=== PATIENT | female | born 1955 | race African-American/Black ===

== ENCOUNTER 2017-05-20 10:21 | Emergency (ER) | payer MEDICAID ==
[~2017-05-20] VITALS: Ht 175.3 cm; Wt 77.0 kg
[~2017-05-20 10:21] MED LIST: ASPI-1079 PO; FURO-151 PO; [UNRECOGNIZED DRUG - OTHER]
[2017-05-20 10:46] VITALS: BP 153/65
[2017-05-20 11:48] LABS: BASOPHILS % 0.8 % (0.0-2.0); HEMATOCRIT. 32.8 % (36.0-48.0); HEMOGLOBIN. 10.7 g/dL (12.0-16.0); LYMPHOCYTES % 30.3 % (20.0-50.0); MEAN CORPUSCULAR HEMOGLOBIN 25.9 pg (28.0-32.0); MEAN CORPUSCULAR VOLUME 79.1 fL (81.0-99.0); MEAN PLATELET VOLUME 8.7 fl (7.4-10.4); NEUTROPHILS % 56.9 % (40.0-76.0); PLATELET 211 x1000/uL (130-400); RED BLOOD CELL COUNT 4.14 mill/uL (4.2-5.4); RED CELL DISTRIBUTION WIDTH 14.4 % (11.6-14.6)
[2017-05-20 11:51] LABS: CLARITY URINE CLEAR (CLEAR); COLOR URINE YELLOW (YELLOW); GLUCOSE URINE NEGATIVE (NEGATIVE); KETONES URINE NEGATIVE (NEGATIVE); LEUKOCYTE ESTERASE URINE NEGATIVE (NEGATIVE); NITRITE URINE NEGATIVE (NEGATIVE); OCCULT BLOOD URINE NEGATIVE (NEGATIVE); PROTEIN URINE NEGATIVE (NEGATIVE); SPECIFIC GRAVITY URINE 1.012 (1.005-1.030); UROBILINOGEN URINE 0.2 E.U./dL (0.2-1.0)
[2017-05-20 12:02] LABS: CARBON DIOXIDE 25 mEq/L (21-32); CHLORIDE 109 mEq/L (98-107)
[2017-05-20 12:06] LABS: TROPONIN I 0.03 ng/mL (0.00-0.04)
== END 2017-05-20 12:23 | disposition home or self-care (01) ==
LOC: ER 10:56
DX: R42 Dizziness and giddiness (principal); I11.0 Hypertensive heart disease with heart failure; I50.9 Heart failure, unspecified; Z79.82 Long term (current) use of aspirin
CPT/HCPCS: 36415; 80053; 81003; 84484; 85025; 93005; 99285; Z7610

== ENCOUNTER 2017-06-09 04:14 | Inpatient (IN) | payer MEDICAID ==
[~2017-06-09] VITALS: Ht 175.3 cm; Wt 77.1 kg
[2017-06-09] MEDS ORDERED: ACETAMINOPHEN WITH CODEINE 300/30MG TABLET PO ONE (04:45)
[2017-06-09 05:13] LABS: BASOPHILS % 0.4 % (0.0-2.0); EOSINOPHILS % 4.3 % (0.0-5.0); HEMATOCRIT. 30.1 % (36.0-48.0); HEMOGLOBIN. 10.1 g/dL (12.0-16.0); LYMPHOCYTES % 35.5 % (20.0-50.0); MEAN CORPUSCULAR VOLUME 77.8 fL (81.0-99.0); MEAN PLATELET VOLUME 8.9 fl (7.4-10.4); MONOCYTES % 11.4 % (2.0-8.0); NEUTROPHILS % 48.4 % (40.0-76.0); PLATELET 197 x1000/uL (130-400); RED BLOOD CELL COUNT 3.87 mill/uL (4.2-5.4); RED CELL DISTRIBUTION WIDTH 13.8 % (11.6-14.6)
[2017-06-09 05:21] LABS: PROTHROMBIN TIME 10.7 sec (9.4-11.6)
[2017-06-09 05:39] LABS: CARBON DIOXIDE 23 mEq/L (21-32); CHLORIDE 108 mEq/L (98-107)
[2017-06-09] MEDS ORDERED: AMPICILLIN SOD/SULBACTAM NA 3 G in SODIUM CHLORIDE 0.9% 100 ML IV SCH (06:00)
[2017-06-09] MEDS: VANCOMYCIN 1 G PREMIX 200 ML IV SCH ×2 (06:00→08:30)
[2017-06-09 08:45] VITALS: BP 148/47
[2017-06-09] MEDS ORDERED: ZOLPIDEM TARTRATE 5MG TABLET PO PRN (09:45)
[2017-06-09] MEDS ORDERED: NA PHOS,M-B/NA PHOS,DI-BA ENEMA 118ML PR PRN (09:45)
[2017-06-09] MEDS ORDERED: LORAZEPAM 2MG/ML CPJ IV PRN (09:45)
[2017-06-09] MEDS ORDERED: MAGNESIUM/ALUMINUM HYDROXIDE/SIMETHICONE 30ML UDC PO PRN (09:45)
[2017-06-09] MEDS ORDERED: TRAMADOL 50MG TABLET PO PRN (09:45)
[2017-06-09] MEDS ORDERED: IPRATROPIUM/ALBUTEROL 0.5-3(2.5)MG/3ML NEB INH PRN (09:45)
[2017-06-09] MEDS ORDERED: GUAIFENESIN 200MG/10ML SUGAR FREE UDC PO PRN (09:45)
[2017-06-09] MEDS ORDERED: DIPHENHYDRAMINE 50MG/ML VIAL IV PRN (09:45)
[2017-06-09] MEDS ORDERED: CLONIDINE 0.1MG TABLET PO PRN (09:45)
[2017-06-09] MEDS ORDERED: KETOROLAC 30MG/ML VIAL IV PRN (09:45)
[2017-06-09] MEDS ORDERED: ACETAMINOPHEN 325MG TABLET PO PRN (09:45)
[2017-06-09] MEDS ORDERED: ONDANSETRON HCL 4MG/2ML VIAL IV PRN (09:45)
[2017-06-09] MEDS: ENOXAPARIN 40MG/0.4ML SYR SUBCUT SCH (10:12)
[2017-06-09] MEDS: KETOROLAC 15MG/ML VIAL IV PRN ×2 (10:13→16:33)
[2017-06-09 10:37] LABS: FOLIC ACID (FOLATE) SERUM 15.2 ng/mL (>5.38)
[2017-06-09 12:00] VITALS: BP 155/62
[2017-06-09] MEDS ORDERED: INFLUENZA VIRUS VACCINE 0.5ML SYR IM ONE (12:00)
[2017-06-09 12:22] LABS: *AMPHETAMINES SCREEN URINE NEGATIVE (NEGATIVE); *BARBITURATES SCREEN URINE NEGATIVE (NEGATIVE); *BENZODIAZEPINES SCREEN URINE NEGATIVE (NEGATIVE); *COCAINE SCREEN URINE PRESUMTIVE POSITIVE (NEGATIVE); CANNABINOID URINE SCREEN PRESUMTIVE POSITIVE (NEGATIVE); METHADONE URINE SCREEN NEGATIVE (NEGATIVE); OPIATES URINE SCREEN PRESUMTIVE POSITIVE (NEGATIVE); PHENCYCLIDINE URINE SCREEN NEGATIVE (NEGATIVE)
[2017-06-09] MEDS ORDERED: FURO-152 PO (13:30)
[2017-06-09] MEDS ORDERED: IBUP-1649 PO (13:30)
[2017-06-09] MEDS: CLINDAMYCIN 900 MG in DEXTROSE 5% WATER 50 ML IV SCH ×2 (13:48→21:23)
[2017-06-09 15:21] LABS: TOTAL IRON BINDING CAPACITY 237 ug/dL (250-450)
[2017-06-09] MEDS ORDERED: KETOROLAC 15MG/ML VIAL IV PRN (15:45)
[2017-06-09 16:00] VITALS: BP 150/60
[2017-06-09 20:00] VITALS: BP_SYST 136; BP_DIAS 54; BP_DIAS 74
[2017-06-09] MEDS: ASCORBIC ACID 500 MG TABLET PO SCH (21:22)
[2017-06-10] VITALS: BP 148/59
[2017-06-10 04:00] VITALS: BP 155/60
[2017-06-10] MEDS: CLINDAMYCIN 900 MG in DEXTROSE 5% WATER 50 ML IV SCH ×2 (05:59→13:52)
[2017-06-10 08:00] VITALS: BP 122/56
[2017-06-10] MEDS ORDERED: ZINC SULFATE 220 MG ( 50 ) CAPSULE PO SCH (09:00)
[2017-06-10] MEDS ORDERED: ASPIRIN 325MG EC TABLET PO SCH (09:00)
[2017-06-10] MEDS: ASCORBIC ACID 500 MG TABLET PO SCH (09:41)
[2017-06-10] MEDS: ENOXAPARIN 40MG/0.4ML SYR SUBCUT SCH (09:42)
[2017-06-10 12:00] VITALS: BP 152/84
[2017-06-10 13:59] VITALS: BP 152/84
== END 2017-06-10 14:55 | disposition home or self-care (01) | DRG 383 ==
LOC: ER 04:14 → 6EST 06:04 → ENRESERV 07:03
PROVIDERS: ADMIT Internal Medicine; ATTEND Internal Medicine
DX: L03.115 Cellulitis of right lower limb (principal); I11.0 Hypertensive heart disease with heart failure; I50.9 Heart failure, unspecified; L97.319 Non-pressure chronic ulcer of right ankle with unspecified severity; D63.8 Anemia in other chronic diseases classified elsewhere; F17.210 Nicotine dependence, cigarettes, uncomplicated; F19.10 Other psychoactive substance abuse, uncomplicated; Z79.82 Long term (current) use of aspirin; Z79.899 Other long term (current) drug therapy; Z71.6 Tobacco abuse counseling
CPT/HCPCS: 36415; 73610; 80053; 80305; 82607; 82746; 83036; 83540; 83550; 83605; 85025; 85610; 87040; 90686; 93923; 96365; 96367; 99285; C1893; J0295; J1650; J1885; J3370; J3490; J7030; J7040; J7050; J7060